=== PATIENT | male | born 1965 | race Caucasian/White ===

== ENCOUNTER → 2018-11-22 | Outpatient (CLI) | payer OTHER ==
--- NOTE | 2018-11-25 10:35 | SLEEPCENT ---
DATE OF PROCEDURE: 11/22/2018 ORDERING PROVIDER: Sobeida Blake Nocturnal polysomnography was performed for the titration of pressure therapy in this patient with obstructive sleep apnea syndrome. For testing, the patient was fit with a [employer]Med Mirage Quattro full face mask of medium size, 11 cm of water pressure were applied to the circuit, and the lights were extinguished. 7 hours and 38 minutes of data were reviewed. There were 406 minutes of sleep identified. Sleep latency was normal at 11.5 minutes. Rapid eye movement (REM) latency was short at 57 minutes. Sleep architecture was good with four REM cycles noted. Overall sleep efficiency was 89.4%. The electrocardiogram showed a sinus rhythm with an average heart rate of 52 beats per minute. Electroencephalogram (EEG) showed normal waveforms for awake and sleep. Respiratory events were fully palliated with C-PAP pressure of +11. There was some limb activity early in the study, which improved later in the test and movement arousal index was only 3.1. IMPRESSION: Obstructive sleep apnea syndrome (G47.33). RECOMMENDATIONS: Nightly use of pressure therapy 11 cm of water.
== END ==
LOC: M SLEEP 19:44
PROVIDERS: ATTEND Nurse Practitioner Family
DX: G47.33 Obstructive sleep apnea (adult) (pediatric) (principal)

== ENCOUNTER → 2019-06-20 | Outpatient (CLI) | payer OTHER ==
--- NOTE | 2019-06-23 10:10 | SLEEPCENT ---
DATE OF PROCEDURE: 06/20/2019 ORDERED BY: Sobeida Blake NP Nocturnal polysomnography was performed followed by multiple sleep latency testing on this patient with obstructive sleep apnea syndrome utilizing C-PAP but experiencing excessive daytime somnolence. For night testing, 7 hours and 49 minutes of data were reviewed. There were 421 minutes of sleep identified. Sleep latency was mildly prolonged at 17.5 minutes. Rapid eye movement (REM) latency was normal at 86 minutes. Sleep architecture, initially somewhat fragmented, improved over the course of study with optimal pressure therapy. There were four REM cycles noted. Overall sleep efficiency was 90.7%. The patient's electrocardiogram showed sinus rhythm with an average heart rate of 55 beats per minute. Electroencephalogram (EEG) showed normal waveforms for awake and sleep. Respiratory events were not palliated with the initial C-PAP pressure of +11 and an increase in C-PAP to an optimal pressure of 15 was necessary to optimally palliate respiratory fragmentation of sleep. Some limb activity was appreciated. There were three trains of 30 events appreciated. Limb movement arousal index was only 7. Nocturnal polysomnography was followed by multiple sleep latency testing. Four nap opportunities were offered at 2-hour intervals. Sleep was appreciated on four of four nap opportunities. There was no REM sleep appreciated. The mean sleep latency was 3.6 minutes. IMPRESSION 1. Obstructive sleep apnea syndrome (G47.33). 2. Abnormal mean sleep latency on multiple sleep latency testing, 3.6 minutes. RECOMMENDATIONS: For optimal management of obstructive sleep apnea syndrome, C-PAP at a pressure of 15 cm of water is recommended. Interpretation of the short sleep latency requires caution as the patient's pressure therapy was changed during the preceding night. Nonetheless, should the patient experience excessive somnolence despite use of optimal C-PAP, interventions to address the excessive somnolence would not be unreasonable.
== END ==
LOC: M SLEEP 20:05
PROVIDERS: ATTEND Nurse Practitioner Family
DX: G47.33 Obstructive sleep apnea (adult) (pediatric) (principal)

== ENCOUNTER → 2019-11-20 | Outpatient (CLI) | payer OTHER ==
--- NOTE | 2019-11-20 11:34 | REPPI ---
Clinical: Nicotine dependence . Comparison: 11/06/2010 . Technique: PA and lateral. Findings: The mediastinum and cardiac silhouette are normal. The lung loomis are clear and without acute consolidation, effusion, or pneumothorax. The skeletal structures are intact and normal. Impression: 1. No acute cardiopulmonary process. Electronically Signed by Sarath David MD 11/20/2019 11:26 A
--- NOTE | 2019-11-20 11:35 | REPPI ---
Clinical: thoracic pain. Technique: AP, lateral, and swimmers views. Findings: Alignment and kyphosis is maintained. Vertebral bodies intact. No acute fracture / compression injury or subluxation. No degenerative changes. Paravertebral soft tissues are normal. Impression: Normal thoracic spine series. The Electronically Signed by Sarath David MD 11/20/2019 11:26 A
--- NOTE | 2019-11-20 11:38 | REPPI ---
Clinical: Pain. Technique: AP, lateral, flexion/extension, bilateral oblique, and open mouth views of the cervical spine. Comparison: 04/28/2016. Findings: Stable alignment. Moderate multilevel degenerative changes include osteophytosis, endplate sclerosis and disc space narrowing is mildly progressive when compared to prior examination. Findings most pronounced at C6-7 and C5-6. No acute fracture / compression injury or subluxation. Impression: Moderate multilevel degenerative spondylosis which is mildly progressive when compared to 2016. Electronically Signed by Sarath David MD 11/20/2019 11:29 A
--- NOTE | 2019-11-20 11:39 | REPPI ---
Clinical: Lower back pain . Technique: AP, lateral, bilateral oblique, and coned-down views. Comparison: 04/28/2016 Findings: Alignment is maintained. Straightening of normal lordosis is nonspecific but represents a change from prior examination. No acute fracture / compression injury or subluxation. Moderate multilevel degenerative changes include osteophytosis, endplate sclerosis, hypertrophic facet changes and minimal disc space narrowing. Impression: No acute fracture / compression injury or subluxation. Moderate multilevel degenerative spondylosis. Electronically Signed by Sarath David MD 11/20/2019 11:30 A
== END ==
LOC: M PLAIMG 10:58
PROVIDERS: ATTEND Physician Assistant
DX: M54.5 Low back pain (principal); F17.210 Nicotine dependence, cigarettes, uncomplicated

== ENCOUNTER → 2019-11-20 | Outpatient (REF) | payer OTHER ==
[2019-11-20 11:52] LABS: BASO # 0.1 10^3/uL (0.0-0.2); EOS # 0.3 10^3/uL (0.0-0.5); EOS % 3.9 % (0.0-3.0); HEMATOCRIT 43.4 % (42.0-52.0); HEMOGLOBIN 14.7 g/dl (13.5-17.5); LYMPH % 23.6 % (24.0-44.0); MEAN CORPUSCULAR HEMOGLOBIN 32.2 pg (27.0-33.0); MEAN CORPUSCULAR HGB CONC 33.9 g/dl (32.0-36.5); MEAN CORPUSCULAR VOLUME 95.2 fl (80.0-96.0); MONO # 0.7 10^3/uL (0.0-0.8); MONO % 8.4 % (0.0-5.0); NEUTROPHILS # 5.1 10^3/uL (1.5-8.5); NEUTROPHILS % 62.3 % (36.0-66.0); PLATELET COUNT, AUTOMATED 262 10^3/uL (150-450); RED BLOOD COUNT 4.56 10^6/uL (4.30-6.10); WHITE BLOOD COUNT 8.3 10^3/uL (4.0-10.0)
[2019-11-20 12:06] LABS: ALBUMIN 4.1 GM/DL (3.2-5.2); ALT/SGPT 43 U/L (12-78); BILIRUBIN,TOTAL 0.5 MG/DL (0.2-1.0); BLOOD UREA NITROGEN 16 MG/DL (7-18); CALCIUM LEVEL 9.4 MG/DL (8.5-10.1); CARBON DIOXIDE LEVEL 29 MEQ/L (21-32); CHLORIDE LEVEL 105 MEQ/L (98-107); CHOLESTEROL LEVEL 229 MG/DL (<200); CHOLESTEROL RISK RATIO 6.026 (<5); CREATININE FOR GFR 0.93 MG/DL (0.70-1.30); FREE T4 0.82 NG/DL (0.76-1.46); GLOMERULAR FILTRATION RATE > 60.0 (>56); GLUCOSE, FASTING 97 MG/DL (70-100); HDL CHOLESTEROL 38 MG/DL (>40); LDL CHOLESTEROL 148 MG/DL (<100); NON-HDL-C 191 MG/DL; POTASSIUM SERUM 4.3 MEQ/L (3.5-5.1); SODIUM LEVEL 138 MEQ/L (136-145); TOTAL 25(OH) VITAMIN D 13.4 NG/ML (30.0-100.0); TOTAL PROTEIN 7.4 GM/DL (6.4-8.2); TRIGLYCERIDES LEVEL 216 MG/DL (<150)
== END ==
LOC: M SFHCPLAZ 09:56
PROVIDERS: ATTEND Physician Assistant
DX: Z00.00 Encounter for general adult medical examination without abnormal findings (principal); R53.83 Other fatigue; G47.33 Obstructive sleep apnea (adult) (pediatric); Z13.29 Encounter for screening for other suspected endocrine disorder; Z13.220 Encounter for screening for lipoid disorders

== ENCOUNTER → 2019-11-28 | Outpatient (CLI) | payer OTHER | LOC: M SLEEP 20:25 | PROVIDERS: ATTEND Nurse Practitioner Family | DX: G47.33 Obstructive sleep apnea (adult) (pediatric) (principal); G47.10 Hypersomnia, unspecified ==

== ENCOUNTER → 2020-03-05 | Outpatient (REF) | payer OTHER ==
[2020-03-05 12:01] LABS: RHEUMATOID FACTOR QUANT < 10.0 IU/ML (<15.0)
== END ==
LOC: M SFHCPLAZ 08:44
PROVIDERS: ATTEND Physician Assistant
DX: M13.0 Polyarthritis, unspecified (principal); G89.29 Other chronic pain; M54.5 Low back pain

== ENCOUNTER → 2020-05-10 | Outpatient (CLI) | payer OTHER ==
--- NOTE | 2020-06-27 09:46 | REP ---
MRI PELVIS WITHOUT CONTRAST HISTORY: Positive HLA-B27 sacroiliitis. TECHNIQUE: Multiple sequences obtained in the axillary, coronal, and sagittal planes centered at the posterior pelvis and sacrum. FINDINGS: The sacrum demonstrates normal marrow signal as do the adjacent iliac bones. There is no MRI evidence of sacroiliitis. There is mild degenerative changes of the lower lumbar spine with mild disc space narrowing at L4-5 and L5-S1. Visualized intrapelvic structures appear unremarkable. I see no evidence of mass, adenopathy, or free fluid in the visualized pelvis. IMPRESSION: No MRI evidence of sacroiliitis. MTDD
== END ==
LOC: M RAD 08:00
PROVIDERS: ATTEND Internal Medicine Rheumatology
DX: Z15.89 Genetic susceptibility to other disease (principal)

== ENCOUNTER → 2020-06-03 | Outpatient (CLI) | payer OTHER | LOC: M PLALAB 15:51 | PROVIDERS: ATTEND Internal Medicine | DX: Z13.0 Encounter for screening for diseases of the blood and blood-forming organs and certain disorders involving the immune mechanism (principal) ==

== ENCOUNTER → 2020-06-18 | Outpatient (CLI) | payer OTHER ==
[2020-06-18 11:43] LABS: ALBUMIN 3.8 GM/DL (3.2-5.2); ALT/SGPT 50 U/L (12-78); BILIRUBIN,TOTAL 0.5 MG/DL (0.2-1.0); BLOOD UREA NITROGEN 9 MG/DL (7-18); CALCIUM LEVEL 9.6 MG/DL (8.5-10.1); CARBON DIOXIDE LEVEL 31 MEQ/L (21-32); CHLORIDE LEVEL 103 MEQ/L (98-107); CHOLESTEROL LEVEL 200 MG/DL (<200); CHOLESTEROL RISK RATIO 4.878 (<5); CREATININE FOR GFR 0.97 MG/DL (0.70-1.30); GLOMERULAR FILTRATION RATE > 60.0 (>56); GLUCOSE, FASTING 97 MG/DL (70-100); HDL CHOLESTEROL 41 MG/DL (>40); LDL CHOLESTEROL 98 MG/DL (<100); NON-HDL-C 159 MG/DL; POTASSIUM SERUM 4.9 MEQ/L (3.5-5.1); SODIUM LEVEL 139 MEQ/L (136-145); TOTAL PROTEIN 7.2 GM/DL (6.4-8.2); TRIGLYCERIDES LEVEL 306 MG/DL (<150)
[2020-06-18 13:26] LABS: TOTAL 25(OH) VITAMIN D 31.2 NG/ML (30.0-100.0)
== END ==
LOC: M PLALAB 08:06
PROVIDERS: ATTEND Physician Assistant
DX: I11.9 Hypertensive heart disease without heart failure (principal); E78.5 Hyperlipidemia, unspecified; E55.9 Vitamin D deficiency, unspecified

== ENCOUNTER → 2020-09-20 | Outpatient (REF) | payer OTHER | LOC: M SFHCPLAZ 14:09 | PROVIDERS: ATTEND Physician Assistant | DX: Z12.5 Encounter for screening for malignant neoplasm of prostate (principal) | CPT/HCPCS: 36415; G0103 ==

== ENCOUNTER → 2020-09-20 | Outpatient (CLI) | payer OTHER ==
--- NOTE | 2020-09-20 13:47 | REPVR ---
PROCEDURE INFORMATION: Exam: MR Cervical Spine Without Contrast Exam date and time: 09/20/2020 9:02 AM Age: 55 years old Clinical indication: Radicular pain (radiculopathy); Cervical region; Additional info: Cervical radiculopathy TECHNIQUE: Imaging protocol: Multiplanar magnetic resonance images of the cervical spine without contrast. COMPARISON: CR SPINE CERVICAL COMPLETE 11/20/2019 11:14 AM FINDINGS: Vertebrae: 2 mm of degenerative retrolisthesis of C3 on C4 and C5 on C6. No acute fracture seen. Spinal cord: Normal signal. No cord compression. Disc height loss and spondylosis is marked at C6-C7, moderate at C5-C6, [id number]-ap-hewctunr at C3-C4 and C4-C5. Endplate inflammation from C3 through C7 is likely inflammatory/degenerative. C2-C3: Mild disc bulge does not contribute to central spinal canal stenosis. Uncovertebral and facet arthropathy causing mild bilateral neural foraminal stenoses. C3-C4: Retrolisthesis, disc osteophyte complex and ligamentum flavum buckling causing mild central spinal canal stenosis. Uncovertebral and facet arthropathy causing severe bilateral neural foraminal stenoses. C4-C5: Disc osteophyte complex and ligamentum flavum buckling causing kwnf-md-lxjfdsot central spinal canal stenosis. Uncovertebral and facet arthropathy causing severe bilateral neural foraminal stenoses. C5-C6: Disc osteophyte complex and ligamentum flavum buckling causing miav-sz-nfxbqwqi central spinal canal stenosis. Uncovertebral and facet arthropathy causing severe bilateral neural foraminal stenoses. C6-C7: Disc osteophyte complex and ligamentum flavum buckling causing mild central spinal canal stenosis. Uncovertebral and facet arthropathy causing severe left and moderate to severe right neural foraminal stenoses. C7-T1: Hoby-dc-likdaclt facet arthropathy. No stenoses. Vertebral arteries: Expected flow voids in the vertebral arteries. Soft tissues: Unremarkable. IMPRESSION: 1. Degenerative disc disease from C3-C4 through C6-C7. 2. High-grade bilateral neural foraminal stenoses from C3-C4 through C6-C7. Central spinal canal stenoses are [id number]-dk-xohvfcvg in degree. Electronically signed by: Drea Khoury On 09/20/2020 13:47:03 PM
== END ==
LOC: M RAD 07:55
PROVIDERS: ATTEND Internal Medicine
DX: M54.12 Radiculopathy, cervical region (principal)

== ENCOUNTER → 2020-10-10 | Outpatient (CLI) | payer OTHER ==
--- NOTE | 2020-10-10 17:02 | REP ---
INDICATION: WT LOSS NIGHT SWEATS NICOTINE DEPEND COMPARISON: None TECHNIQUE: Axial noncontrast images from the thoracic inlet to the upper abdomen with coronal and sagittal reformations. This CT examination was performed using the following dose reduction techniques: Automated exposure control, adjustment of mA and/or kv according to the patient's size, and use of iterative reconstruction technique. FINDINGS: Bilateral lung loomis demonstrate chronic interstitial changes and relatively focal bullous changes at the right base up to 6.1 cm. Few scattered noncalcified pulmonary nodules are identified including 9 mm nodule with subtle spiculated margin along the medial aspect of the left lower lobe (series 201; image 59). Few nonspecific mediastinal lymph nodes measure up to 12 mm short axis diameter. No effusion. No pneumothorax. Tracheobronchial tree is patent. Further evaluation of the mediastinum demonstrates relatively normal thoracic aorta, pulmonary vasculature, and heart/pericardium by noncontrast evaluation. Thyroid gland is grossly normal. Osseous structures are intact and without acute abnormality. Limited upper abdomen demonstrates normal bilateral adrenal glands. IMPRESSION: Few noncalcified nodules including 9 mm nodule in the medial left lower lobe with subtle spiculation along with nonspecific mediastinal lymph nodes up to 12 mm short axis diameter. No prior examinations are available for comparison. Management recommendations include 3 month short-term follow-up evaluation and/or PET-CT. <Electronically signed by Sarath David > 10/10/20 [id number]
== END ==
LOC: M RAD 16:38
PROVIDERS: ATTEND Physician Assistant
DX: R91.8 Other nonspecific abnormal finding of lung field (principal); R63.4 Abnormal weight loss; R61 Generalized hyperhidrosis; F17.210 Nicotine dependence, cigarettes, uncomplicated

== ENCOUNTER 2020-12-21 09:54 | Emergency (ER) | payer OTHER ==
[~2020-12-21] VITALS: Ht 182.9 cm; Wt 99.4 kg
[2020-12-21] MEDS ORDERED: [UNRECOGNIZED DRUG - CODE] PO (10:09)
[2020-12-21] MEDS ORDERED: AMPH1CAP16 (10:09)
[2020-12-21] MEDS ORDERED: IBUP200C33 PO (10:10)
--- NOTE | 2020-12-21 10:35 | REP ---
INDICATION: pain, decreased ROM. COMPARISON: None. TECHNIQUE: Three views. FINDINGS: Mineralization is normal. The acromioclavicular and glenohumeral articulations are unremarkable. There is no fracture or dislocation. There are no calcifications or foreign bodies. IMPRESSION: Essentially negative right shoulder. <Electronically signed by Beny Sood > 12/21/20 [id number]
[2020-12-21] MEDS ORDERED: KETOROLAC 60MG 2ML VIAL IM ONE (11:25)
[2020-12-21] MEDS ORDERED: KETO10TAB PO (11:46)
[2020-12-21] MEDS ORDERED: ROBA750T4 PO (11:47)
[2020-12-21 12:05] VITALS: BP 144/98
== END 2020-12-21 12:13 | disposition home or self-care (01) ==
LOC: M ED 09:54
DX: M25.511 Pain in right shoulder (principal); G47.33 Obstructive sleep apnea (adult) (pediatric)
CPT/HCPCS: 73030; 96372; 99284; J1885

== ENCOUNTER → 2020-12-25 | Outpatient (CLI) | payer OTHER ==
[~2020-12-25] MED LIST: AMPH1CAP16; IBUP200C33 PO; KETO10TAB PO; ROBA750T4 PO; [UNRECOGNIZED DRUG - CODE] PO
--- NOTE | 2020-12-25 15:26 | REP ---
INDICATION: SHOULDER PAIN. COMPARISON: Radiographs 12/21/2020. TECHNIQUE: Coronal oblique T1, T2 fat sat, sagittal oblique T2 fat sat, axial T2 fat sat, gradient echo. FINDINGS: Rotator cuff: No evidence of tear. There is mild supraspinatus tendinopathy/tendinitis. Acromioclavicular joint: There are mild hypertrophic degenerative changes of the acromioclavicular joint. Acromion: Type 2 Biceps Tendon: The biceps tendon is within the bicipital groove. There is mild surrounding fluid. There is also moderate degree of soft tissue edema in this region which involves the short head of the biceps muscle. The findings may represent tenosynovitis and muscle strain. Hill Sach's deformity: None. Deltoid muscle: There is mild edema in the deep anterior deltoid muscle near the humerus, which may represent a muscle strain. There is a mild amount of fluid in the associated subdeltoid bursa. Biceps labral complex: Intact. Labrum: There is a tear of the posterior aspect of the superior labrum. There is an associated large paralabral cyst which has a lobulated shape, portion extends along the superior posterior glenoid with a transverse length of about 2.8 cm and a diameter of about 1.2 cm. A component extends inferior from this along the posterior glenoid for a length of about 2.7 cm, with a maximum diameter of 9 mm. There is also a tear of the inferior labrum. Cartilage: No defects. There is mild chondromalacia at the glenohumeral joint. Bone marrow: No abnormal signal. Joint fluid: No effusion. IMPRESSION: Mild supraspinatus tendinopathy/tendinitis with no evidence of rotator cuff tendon tear. Mild hypertrophic degenerative changes acromioclavicular joint with a type 2 acromion. Mild fluid surrounds the biceps tendon and there is also moderate adjacent soft tissue edema which involves the short head of the biceps muscle. This may represent tenosynovitis and muscle strain. There is also edema involving the deep anterior deltoid muscle which may represent a muscle strain. There is mild adjacent fluid in the anterior subdeltoid bursa. There is a tear of the posterior aspect of the superior labrum with a large paralabral cyst. There is a focal tear of the inferior labrum. <Electronically signed by Beny Enrique > 12/25/20 [id number]
== END ==
LOC: M PLARAD 13:32
PROVIDERS: ATTEND Physician Assistant
DX: M25.511 Pain in right shoulder (principal)

== ENCOUNTER → 2021-01-29 | Outpatient (CLI) | payer OTHER ==
--- NOTE | 2021-01-29 11:51 | REP ---
INDICATION: DYSPNEA COMPARISON: 10/10/2020 the only prior TECHNIQUE: Standard helical technique without the administration of intravenous contrast FINDINGS: The mediastinum and pulmonary sharona are unchanged. Once again, there is a mildly enlarged mediastinal lymph node in the AP window. There are no pleural or pericardial effusions. The imaged upper abdomen and imaged osseous structures are unchanged. Evaluation of the lung loomis shows no evidence of change involving the 9 mm size nodule in the left lower lobe. Other smaller scattered nodules are also noted status quo. Bullous emphysematous changes are again seen status quo. There is stable appearing a cylindrical bronchiectasis. No new abnormal nodules, masses, or opacities have developed. IMPRESSION: Persistent category 4 B pulmonary nodules. According to the revised Fleischner society criteria CT-PET is recommended. <Electronically signed by Prakash Gunter > 01/29/21 [id number]
== END ==
LOC: M RAD 10:37
PROVIDERS: ATTEND Nurse Practitioner Family
DX: R91.8 Other nonspecific abnormal finding of lung field (principal)

== ENCOUNTER → 2021-04-21 | Outpatient (CLI) | payer OTHER ==
[~2021-04-21] MED LIST changes: +ADDE20CA3 PO; +ADDE20TA PO; +CLAR10TA7 PO; +IBUP1TAB7 PO; +OMEP1CAP73 PO; +SILV1CRE60 TOP
--- NOTE | 2021-04-21 13:16 | REP ---
INDICATION: CONTUSION. COMPARISON: Chest 11/20/2019. TECHNIQUE: Four views right ribs, frontal view chest. FINDINGS: No radiographic evidence of right rib fracture or bone lesion. There is a moderate right pneumothorax. Atelectatic changes are seen in the right lung base. The heart and mediastinum are unremarkable. IMPRESSION: No radiographic evidence of right rib fracture. Moderate right pneumothorax. <Electronically signed by Beny Enrique > 04/21/21 [id number]
== END ==
LOC: M WUC 11:59
PROVIDERS: ATTEND Physician Assistant
DX: S20.211A Contusion of right front wall of thorax, initial encounter (principal); W18.30XA Fall on same level, unspecified, initial encounter; Y92.009 Unspecified place in unspecified non-institutional (private) residence as the place of occurrence of the external cause

== ENCOUNTER 2021-04-23 19:49 | Inpatient (IN) | payer OTHER ==
[2021-04-23] VITALS (21 sets, daily range): BP systolic 136–187; BP diastolic 83–113; O2SAT 97–98
[~2021-04-23] VITALS: Ht 182.9 cm; Wt 95.0 kg
[~2021-04-23 19:49] MED LIST changes: -ADDE20CA3 PO; -ADDE20TA PO; -CLAR10TA7 PO; -IBUP1TAB7 PO; -OMEP1CAP73 PO; -SILV1CRE60 TOP
[2021-04-23] MEDS ORDERED: PERCOCET 5MG/325MG TAB PO PRN ×4 (20:50→22:00)
[2021-04-23] MEDS ORDERED: ACETAMINOPHEN TAB 650MG DOSE (2X325MG) PO PRN (20:50)
[2021-04-23] MEDS ORDERED: ONDANSETRON 4MG/2ML VIAL IV PRN (20:50)
[2021-04-23] MEDS ORDERED: SENOKOT S TAB PO PRN (20:50)
[2021-04-23] MEDS ORDERED: MOM 30ML SUSPENSION UDC PO PRN (20:50)
[2021-04-23] MEDS ORDERED: KETOROLAC 30 MG/ML 1ML VIAL IV SCH (20:50)
[2021-04-23] MEDS ORDERED: KCL 20MEQ IN D5/NS 1000ML 1,000 ML IV SCH (20:50)
[2021-04-23] MEDS ORDERED: LEVALBUTEROL 1.25 MG/0.5 ML CONCENTRATE NEB NEB PRN (20:50)
[2021-04-23] MEDS ORDERED: BISACODYL 10 MG SUPP PR PRN (20:50)
[2021-04-23] MEDS ORDERED: SILV1CRE60 TOP (20:58)
[2021-04-23] MEDS ORDERED: OMEP1CAP73 PO (20:58)
[2021-04-23] MEDS ORDERED: IBUP1TAB7 PO (20:58)
[2021-04-23] MEDS ORDERED: ADDE20TA PO (20:58)
[2021-04-23] MEDS ORDERED: ADDE20CA3 PO (20:58)
[2021-04-23] MEDS ORDERED: CLAR10TA7 PO (20:58)
[2021-04-23 21:04] LABS: BASO # 0.1 10^3/uL (0.0-0.2); BASO % 0.8 % (0.0-1.0); EOS # 0.4 10^3/uL (0.0-0.5); EOS % 5.4 % (0.0-3.0); HEMATOCRIT 42.4 % (42.0-52.0); HEMOGLOBIN 14.6 g/dl (13.5-17.5); LYMPH # 2.1 10^3/uL (1.5-5.0); LYMPH % 26.5 % (24.0-44.0); MEAN CORPUSCULAR HEMOGLOBIN 31.8 pg (27.0-33.0); MEAN CORPUSCULAR HGB CONC 34.4 g/dl (32.0-36.5); MEAN CORPUSCULAR VOLUME 92.4 fl (80.0-96.0); MONO # 0.6 10^3/uL (0.0-0.8); NEUTROPHILS # 4.7 10^3/uL (1.5-8.5); NEUTROPHILS % 58.9 % (36.0-66.0); PLATELET COUNT, AUTOMATED 253 10^3/uL (150-450); RED BLOOD COUNT 4.59 10^6/uL (4.30-6.10); WHITE BLOOD COUNT 7.9 10^3/uL (4.0-10.0)
[2021-04-23] MEDS ORDERED: MIDAZOLAM INJ 2MG/2ML VIAL (J2250 PER 1MG) As Ordered ONE (21:09)
[2021-04-23] MEDS ORDERED: flumazeniL 0.5 MG/5 ML VIAL As Ordered ONE (21:09)
[2021-04-23] MEDS ORDERED: LIDOCAINE 1% MDV 20ML VIAL As Ordered ONE (21:10)
[2021-04-23 21:14] LABS: INR 0.91; PROTHROMBIN TIME 12.4 SECONDS (12.5-14.3)
[2021-04-23 21:15] LABS: PARTIAL THROMBOPLASTIN TIME 26.6 SECONDS (24.2-38.5)
[2021-04-23 21:22] LABS: BLOOD UREA NITROGEN 11 MG/DL (7-18); CALCIUM LEVEL 8.9 MG/DL (8.5-10.1); CARBON DIOXIDE LEVEL 29 MEQ/L (21-32); CHLORIDE LEVEL 109 MEQ/L (98-107); CREATININE FOR GFR 0.94 MG/DL (0.70-1.30); GLOMERULAR FILTRATION RATE > 60.0 (>56); GLUCOSE, FASTING 68 MG/DL (70-100); POTASSIUM SERUM 3.7 MEQ/L (3.5-5.1); SODIUM LEVEL 142 MEQ/L (136-145)
[2021-04-23 22:04] LABS: RSV AMPLIFICATION NEGATIVE (NEGATIVE)
[2021-04-23] MEDS ORDERED: NICOTINE POLACRILEX 2 MG GUM PO PRN (22:25)
[2021-04-23] MEDS: DOCUSATE SODIUM 100MG CAPSULE PO SCH (22:50)
[2021-04-23] MEDS: KETOROLAC 30 MG/ML 1ML VIAL IV SCH (22:51)
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
[2021-04-23] MEDS ORDERED: LIDOCAINE 1% MDV 20ML VIAL SC ONE (23:25)
[2021-04-23] MEDS ORDERED: MIDAZOLAM INJ 2MG/2ML VIAL (J2250 PER 1MG) IV ONE ×3 (23:25)
[2021-04-24] VITALS (24 sets, daily range): BP systolic 133–154; BP diastolic 82–96; O2SAT 93–100
[2021-04-24] MEDS ORDERED: NS 1,000 ML IV SCH
[2021-04-24] MEDS: NICOTINE 14 MG/24 HR TRANSDERMAL TD SCH ×2 (00:20→08:43)
[2021-04-24] MEDS: LEVALBUTEROL 1.25 MG/0.5 ML CONCENTRATE NEB NEB SCH ×4 (02:17→19:15)
[2021-04-24] MEDS: KETOROLAC 30 MG/ML 1ML VIAL IV SCH ×4 (04:37→20:41)
[2021-04-24 06:08] LABS: BASO # 0.1 10^3/uL (0.0-0.2); BASO % 0.8 % (0.0-1.0); EOS # 0.4 10^3/uL (0.0-0.5); EOS % 5.2 % (0.0-3.0); HEMATOCRIT 41.9 % (42.0-52.0); LYMPH # 1.7 10^3/uL (1.5-5.0); LYMPH % 20.3 % (24.0-44.0); MEAN CORPUSCULAR HEMOGLOBIN 31.3 pg (27.0-33.0); MEAN CORPUSCULAR HGB CONC 33.4 g/dl (32.0-36.5); MEAN CORPUSCULAR VOLUME 93.5 fl (80.0-96.0); MONO # 0.6 10^3/uL (0.0-0.8); MONO % 7.4 % (2.0-8.0); NEUTROPHILS # 5.4 10^3/uL (1.5-8.5); NEUTROPHILS % 65.8 % (36.0-66.0); PLATELET COUNT, AUTOMATED 238 10^3/uL (150-450); RED BLOOD COUNT 4.48 10^6/uL (4.30-6.10); WHITE BLOOD COUNT 8.3 10^3/uL (4.0-10.0)
[2021-04-24 06:28] LABS: BLOOD UREA NITROGEN 12 MG/DL (7-18); CALCIUM LEVEL 8.6 MG/DL (8.5-10.1); CARBON DIOXIDE LEVEL 26 MEQ/L (21-32); CHLORIDE LEVEL 109 MEQ/L (98-107); GLOMERULAR FILTRATION RATE > 60.0 (>56); GLUCOSE, FASTING 96 MG/DL (70-100); POTASSIUM SERUM 4.2 MEQ/L (3.5-5.1); SODIUM LEVEL 142 MEQ/L (136-145)
--- NOTE | 2021-04-24 07:37 | RO ---
OPERATIVE NOTE DATE OF OPERATION: 04/23/2021 PREOPERATIVE DIAGNOSIS: Right pneumothorax. POSTOPERATIVE DIAGNOSIS: Right pneumothorax. PROCEDURE: Insertion of a right lateral chest tube. SURGEON: Garrett Stanley MD FLOATER OPERATOR: ANESTHESIA: DESCRIPTION OF PROCEDURE: Under satisfactory moderate sedation achieved eventually with 6 mg of Versed, the patient was prepped and draped in the usual sterile fashion. The approximate 6th to 5th intercostal space was infiltrated with 1% lidocaine from the skin to the pleura. Incision was made and a tunnel was created into the chest aiming anteriorly. A #20 chest tube was then placed without difficulty, again aiming anteriorly. Chest tube was secured to the chest wall with #2 Tevdek suture and connected to the Pleur-Evac. It should be noted there was an immediate gush of air once creating the tunnel and an immediate gush of air when connecting the chest tube. Afterwards, the air leak stopped. The patient tolerated the procedure well and a chest x-ray is pending.
--- NOTE | 2021-04-24 07:56 | REP ---
INDICATION: after chest tube placed. COMPARISON: Comparison chest x-ray April 23, 2021. TECHNIQUE: Portable upright AP chest radiograph. FINDINGS: A right-sided chest tube is been placed. The right-sided pneumothorax is improved although pleural air persists superiorly and laterally. Left lung remains clear. There is platelike atelectasis along the minor fissure on the right and in the right lower lobe. Pleural angles are sharp. The intercostal spaces are no longer widened on the right compared to the left.. Heart size is normal. IMPRESSION: Improved right-sided pneumothorax post chest tube placement.. <Electronically signed by Dandre Hermosillo > 04/24/21 [id number]
[2021-04-24] MEDS ORDERED: AMPHETAMINE/DEXTROAMPHETAMINE 5 MG *ER* CAPSULE (ADDERALL XR) PO SCH (08:00)
--- NOTE | 2021-04-24 08:18 | REPVR ---
PROCEDURE INFORMATION: Exam: CT Chest Without Contrast; Diagnostic Exam date and time: 04/24/2021 6:00 AM Age: 55 years old Clinical indication: Other: Pneumo check; Additional info: [employer]nem[employer] TECHNIQUE: Imaging protocol: Diagnostic computed tomography of the chest without contrast. 3D rendering (Not supervised by radiologist): MIP and/or 3D reconstructed images were created by the technologist. Radiation optimization: All CT scans at this facility use at least one of these dose optimization techniques: automated exposure control; mA and/or kV adjustment per patient size (includes targeted exams where dose is matched to clinical indication); or iterative reconstruction. COMPARISON: 1. CT Chest without contrast 01/29/2021 10:50 AM 2. CR PORTABLE CHEST X-RAY 04/23/2021 9:48:31 PM (report not provided) 3. CT Chest without contrast 10/10/2020 4:55:50 PM FINDINGS: Limitations: Evaluation is somewhat limited by lack of IV contrast. Tubes, catheters and devices: A right chest tube has been placed since the radiograph. Lungs: There is similar bullous change in the right lower lobe with minor subpleural apical emphysematous disease. There are stable pulmonary nodules measuring 4 mm in the right lower lobe (image 202:[id number]), and 9 mm, 7 mm and 4 mm in the left lower lobe (images 202:63, 79, 69, respectively). Small scattered patchy ground-glass opacities have developed in the left more than right upper lobes. There is mild dependent atelectasis bilaterally. Pleural spaces: There is decreased, now very small right-sided pneumothorax. No left pneumothorax. Trace right pleural effusion without significant effusion on the left. Heart: Coronary artery calcifications are again present. No significant pericardial effusion. Aorta: Dilatation of the ascending aorta up to 4.2 cm in caliber is fairly stable. Atherosclerotic vascular calcifications are again present. Lymph nodes: Similar borderline enlarged pretracheal lymph node measuring 10 mm short axis. Subcentimeter short axis lymph nodes are present elsewhere in the mediastinum and bilateral sharona. Bones/joints: Degenerative changes again involve the spine. Soft tissues: There is moderate new subcutaneous edema over the right chest wall with some extension into the right neck. IMPRESSION: 1. Right chest tube placed since chest x-ray of 1 day prior, with decreased, now very small right-sided pneumothorax, with trace right pleural effusion. 2. New associated subcutaneous emphysema. 3. Emphysematous and bullous changes similar to CT of 01/29/2021. 4. Small new scattered patchy ground-glass opacities in the left more than right upper lobes, could be infectious or inflammatory. Correlate clinically and follow-up. 5. Stable appearance of pulmonary nodules measuring up to 9 mm, also stable dating back to more remote prior CT of 10/10/2020. For patients at low risk (minimal or absent history of smoking and of other known risk factors), consider continued follow-up CT Chest at 18-24 months from the initial exam. For patients at high risk (history of smoking or of other known risk factors), recommend continued follow-up CT Chest at 18-24 months from the initial exam. (Reference: Minerva) REFERENCES: Minerva H, et al. Guidelines for Management of Incidental Pulmonary Nodules Detected on CT Images: From the Fleischner Society 2017. Radiology. 2017;284(1):228-243. Electronically signed by: Ralf Whittington On 04/24/2021 08:18:32 AM
--- NOTE | 2021-04-24 08:34 | REP ---
INDICATION: after chest tube placed. COMPARISON: Comparison is made with portable chest x-ray post chest tube placement April 23, 2021 at 9:51 p.m.. TECHNIQUE: Two views.. FINDINGS: Right chest tube is seen in place. This appears to be coursing through the major fissure. The right lung has been re-expanded. A tiny sliver of residual apical pleural air is seen on the right. There is soft tissue emphysema along the right chest wall. Left lung is clear. No infiltrate is seen. Heart is not enlarged. IMPRESSION: Re-expansion of the right lung post chest tube placement.. <Electronically signed by Dandre Hermosillo > 04/24/21 [id number]
[2021-04-24] MEDS: AMPHETAMINE/DEXTROAMPHETAMINE 5 MG *ER* CAPSULE (ADDERALL XR) PO SCH (08:42)
[2021-04-24] MEDS: DOCUSATE SODIUM 100MG CAPSULE PO SCH ×2 (08:42→20:42)
[2021-04-24] MEDS: PANTOPRAZOLE 40MG TAB (PROTONIX) PO SCH (08:42)
[2021-04-24] MEDS: LORATADINE 10 MG TAB PO SCH (08:42)
[2021-04-24] MEDS: HEPARIN SOD (PORCINE) 5000UNITS/ML 1ML VIAL/SYRINGE SC SCH ×2 (08:43→20:41)
[2021-04-24] MEDS: MOM 30ML SUSPENSION UDC PO SCH (08:43)
[2021-04-24] MEDS ORDERED: OMEPRAZOLE 20 MG CAP PO SCH (09:00)
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
[2021-04-24] MEDS: ADDERALL 5 MG TAB PO SCH (12:06)
[2021-04-24] MEDS: NORCO, ANEXSIA 5/325MG TABLET (HYDROcodone/ACETAMINOPHEN) PO PRN ×2 (12:06→18:19)
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
[2021-04-25] VITALS (7 sets, daily range): BP systolic 129–168; BP diastolic 72–97; O2SAT 94–96
[2021-04-25] MEDS: LEVALBUTEROL 1.25 MG/0.5 ML CONCENTRATE NEB NEB SCH ×3 (02:10→13:21)
[2021-04-25] MEDS: KETOROLAC 30 MG/ML 1ML VIAL IV SCH ×3 (03:42→14:05)
[2021-04-25 05:56] LABS: BASO % 0.6 % (0.0-1.0); EOS # 0.3 10^3/uL (0.0-0.5); EOS % 4.6 % (0.0-3.0); HEMATOCRIT 41.7 % (42.0-52.0); HEMOGLOBIN 13.9 g/dl (13.5-17.5); LYMPH # 1.6 10^3/uL (1.5-5.0); LYMPH % 25.6 % (24.0-44.0); MEAN CORPUSCULAR HEMOGLOBIN 31.2 pg (27.0-33.0); MEAN CORPUSCULAR HGB CONC 33.3 g/dl (32.0-36.5); MEAN CORPUSCULAR VOLUME 93.7 fl (80.0-96.0); MONO # 0.5 10^3/uL (0.0-0.8); MONO % 7.9 % (2.0-8.0); NEUTROPHILS # 3.8 10^3/uL (1.5-8.5); PLATELET COUNT, AUTOMATED 249 10^3/uL (150-450); RED BLOOD COUNT 4.45 10^6/uL (4.30-6.10); WHITE BLOOD COUNT 6.2 10^3/uL (4.0-10.0)
[2021-04-25 06:06] LABS: BLOOD UREA NITROGEN 18 MG/DL (7-18); CARBON DIOXIDE LEVEL 28 MEQ/L (21-32); CHLORIDE LEVEL 109 MEQ/L (98-107); CREATININE FOR GFR 0.89 MG/DL (0.70-1.30); GLOMERULAR FILTRATION RATE > 60.0 (>56); GLUCOSE, FASTING 103 MG/DL (70-100); SODIUM LEVEL 141 MEQ/L (136-145)
[2021-04-25 06:07] LABS: CALCIUM LEVEL 8.4 MG/DL (8.5-10.1)
[2021-04-25] MEDS: DOCUSATE SODIUM 100MG CAPSULE PO SCH (08:12)
[2021-04-25] MEDS: MOM 30ML SUSPENSION UDC PO SCH (08:12)
[2021-04-25] MEDS: AMPHETAMINE/DEXTROAMPHETAMINE 5 MG *ER* CAPSULE (ADDERALL XR) PO SCH (08:12)
[2021-04-25] MEDS: LORATADINE 10 MG TAB PO SCH (08:12)
[2021-04-25] MEDS: PANTOPRAZOLE 40MG TAB (PROTONIX) PO SCH (08:12)
[2021-04-25] MEDS: HEPARIN SOD (PORCINE) 5000UNITS/ML 1ML VIAL/SYRINGE SC SCH (08:13)
[2021-04-25] MEDS: NICOTINE 14 MG/24 HR TRANSDERMAL TD SCH (08:13)
--- NOTE | 2021-04-25 08:19 | REP ---
INDICATION: after chest tube placed. COMPARISON: Comparison chest x-ray April 24, 2021. TECHNIQUE: Two views.. FINDINGS: Right chest tube remains in place unchanged. There is minimal platelike atelectasis at the right base. The right lung is fully inflated. No discernible pneumothorax today. There is a decreased amount of extra thoracic soft tissue emphysema along the right chest wall. Left lung remains clear. Cardiomediastinal silhouette is unremarkable. IMPRESSION: The right lung is reinflated. Right chest tube in place.. <Electronically signed by Dandre Hermosillo > 04/25/21 [id number]
[2021-04-25] MEDS ORDERED: VARE1TA PO (10:48)
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
[2021-04-25] MEDS: ADDERALL 5 MG TAB PO SCH (12:12)
--- NOTE | 2021-04-25 14:27 | IPNPDOC ---
Text Note Date of Service The patient was seen on 04/25/21. NOTE SUBJECTIVE: -Has some pain at chest tube insertion site, otherwise conversational without any other complaints OBJECTIVE VITAL SIGNS: See below GENERAL APPEARANCE: NAD, on 2L NC breathing comfortably HEENT: NCAT, EOMI, anicteric sclerae, MMM Neck: No JVD, tracheal deviation, or palpable adenopathy CARDIOVASCULAR: Sinus rhythm not tachycardic no carotid bruits LUNGS: With full breath sounds throughout, moving air well, now on room air ABDOMEN:Normoactive bowel sounds x4 quadrants, notender, no rebound guarding no hepatosplenomegaly EXTREMITIES: No cyanosis or clubbing LABORATORY DATA: Reviewed, stable IMAGING: CT chest: Limitations: Evaluation is somewhat limited by lack of IV contrast. Tubes, catheters and devices: A right chest tube has been placed since the radiograph. Lungs: There is similar bullous change in the right lower lobe with minor subpleural apical emphysematous disease. There are stable pulmonary nodules measuring 4 mm in the right lower lobe (image 202:[id number]), and 9 mm, 7 mm and 4 mm in the left lower lobe (images 202:63, 79, 69, respectively). Small scattered patchy ground-glass opacities have developed in the left more than right upper lobes. There is mild dependent atelectasis bilaterally. Pleural spaces: There is decreased, now very small right-sided pneumothorax. No left pneumothorax. Trace right pleural effusion without significant effusion on the left. Heart: Coronary artery calcifications are again present. No significant pericardial effusion. Aorta: Dilatation of the ascending aorta up to 4.2 cm in caliber is fairly stable. Atherosclerotic vascular calcifications are again present. Lymph nodes: Similar borderline enlarged pretracheal lymph node measuring 10 mm short axis. Subcentimeter short axis lymph nodes are present elsewhere in the mediastinum and bilateral sharona. Bones/joints: Degenerative changes again involve the spine. Soft tissues: There is moderate new subcutaneous edema over the right chest wall with some extension into the right neck. IMPRESSION: 1. Right chest tube placed since chest x-ray of 1 day prior, with decreased, now very small right-sided pneumothorax, with trace right pleural effusion. 2. New associated subcutaneous emphysema. 3. Emphysematous and bullous changes similar to CT of 01/29/2021. 4. Small new scattered patchy ground-glass opacities in the left more than right upper lobes, could be infectious or inflammatory. Correlate clinically and follow-up. 5. Stable appearance of pulmonary nodules measuring up to 9 mm, also stable dating back to more remote prior CT of 10/10/2020. For patients at low risk (minimal or absent history of smoking and of other known risk factors), consider continued follow-up CT Chest at 18-24 months from the initial exam. For patients at high risk (history of smoking or of other known risk factors), recommend continued follow-up CT Chest at 18-24 months from the initial exam. (Reference: [facility]) MICROBIOLOGY: Please see below. ASSESSMENT: . 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 Stanley. Chest trauma resulting in acute right pneumothorax -Thoracic surgery, Dr. Garrett Stanley placed a chest tube with reduction in the pneumothorax now very small with reexpansion of lung noted -O2 sat to be kept at greater than 90%, now on room air -As needed Sidney for pain control. - IV Toradol 30 mg every 6 hourly as needed -ALIZA protocol. Obstructive sleep apnea not tolerating CPAP -ALIZA protocol -Continuous oxygen to keep O2 sat greater than 90% at all times -Patient is to be awakened if O2 sat is less than 90% hypertension -continue home medications narcolepsy -Monitor for respiratory acidosis due to opioid use for pain control -Dr. Stanley kindly restarted his home adderall for his narcolepsy allergic rhinitis -continue home meds chronic back pain -On as needed Sidney -On IV Toradol dyslipidemia -continue home meds spiculated 9 mm left lower lobe nodule/ chronic interstitial bullous changes on CT chest 2019 -Outpatient surveillance by his emt. Per imaging, stable from prior. sacroiliac pain -On pain meds allergic rhinitis -Resumed on home meds tobacco abuse -Tobacco cessation counseling - nicotine patch and nicotine gum as needed DVT prophylaxis: Heparin SC Diet 2 g sodium diet DISPO: Likely DC home this afternoon after chest tube removal, a 6h observation and XR at 4PM. VS,Fishbone, I+O VS, Fishbone, I+O Laboratory Tests 04/25/21 05:30 Vital Signs Date Time Temp Pulse Resp B/P (MAP) Pulse Ox O2 Delivery O2 Flow Rate FiO2 04/25/21 04:00 95 Room Air 04/25/21 04:00 97.7 75 17 138/90 (106) 04/24/21 22:00 1.0 I&O- Last 24 Hours up to 6 AM 04/25/21 06:00 Intake Total 1500 ml Output Total 635 ml Balance 865 ml NORMA WATERS MD Apr 25, 2021 08:03
--- NOTE | 2021-04-25 16:08 | REP ---
INDICATION: pneumothx COMPARISON: 04/25/2021 7:32 a.m. TECHNIQUE: PA/Lateral FINDINGS: No pneumothorax is seen. No infiltrate is seen in either lung. The heart and mediastinum are within normal limits. A small amount of air is seen in the right chest wall. Previously noted right chest tube has been removed. IMPRESSION: No pneumothorax or infiltrate. <Electronically signed by Beyn Enrique > 04/25/21 [id number]
== END 2021-04-25 17:12 | disposition home or self-care (01) | DRG 200 ==
LOC: M ED 19:49 → M ED INP 20:46 → ENRESERV 21:05 → M PCU 21:15
PROVIDERS: ADMIT General Practice; ATTEND Thoracic Surgery (Cardiothoracic Vascular Surgery)
PROC: 0W9900Z Drainage of Right Pleural Cavity with Drainage Device, Open Approach (ICD-10-PCS; principal; 2021-04-23)
DX: S27.0XXA Traumatic pneumothorax, initial encounter (principal); S27.321A Contusion of lung, unilateral, initial encounter; G47.33 Obstructive sleep apnea (adult) (pediatric); I10 Essential (primary) hypertension; G47.419 Narcolepsy without cataplexy; J30.9 Allergic rhinitis, unspecified; M46.1 Sacroiliitis, not elsewhere classified; E78.5 Hyperlipidemia, unspecified; T21.21XA Burn of second degree of chest wall, initial encounter; J43.9 Emphysema, unspecified; R91.8 Other nonspecific abnormal finding of lung field; F17.210 Nicotine dependence, cigarettes, uncomplicated; W40.1XXA Explosion of explosive gases, initial encounter; Y92.9 Unspecified place or not applicable; Y99.8 Other external cause status; Y93.H9 Activity, other involving exterior property and land maintenance, building and construction; Z20.822 Contact with and (suspected) exposure to COVID-19; Z79.899 Other long term (current) drug therapy

== ENCOUNTER → 2021-04-30 | Outpatient (CLI) | payer OTHER ==
[~2021-04-30] MED LIST changes: +ADDE20CA3 PO; +ADDE20TA PO; +CLAR10TA7 PO; +IBUP1TAB7 PO; +OMEP1CAP73 PO; +SILV1CRE60 TOP; +VARE1TA PO
--- NOTE | 2021-04-30 15:29 | REP ---
INDICATION: S27.0XXD TRAUMATIC PNEUMOTHORAX, SUBSEQUENT ENCOUNTER. COMPARISON: None. FINDINGS: The superior mediastinal structures are midline. The cardiac silhouette is unremarkable in size, shape, and position. The diaphragmatic surfaces of the lungs are regular, and the costophrenic angles are clear. The pulmonary loomis are clear. The imaged osseous structures are intact. IMPRESSION: There is no acute cardiopulmonary disease. <Electronically signed by Prakash Gunter > 04/30/21 [id number]
== END ==
LOC: M PLAIMG 14:15
PROVIDERS: ATTEND Thoracic Surgery (Cardiothoracic Vascular Surgery)
DX: S27.0XXD Traumatic pneumothorax, subsequent encounter (principal); X58.XXXD Exposure to other specified factors, subsequent encounter; Y92.89 Other specified places as the place of occurrence of the external cause

== ENCOUNTER → 2021-05-13 | Outpatient (CLI) | payer OTHER ==
--- NOTE | 2021-05-13 09:33 | REP ---
INDICATION: CHEST PAIN. COMPARISON: Multiple the latest 04/30/2021 TECHNIQUE: PA and lateral FINDINGS: The superior mediastinal structures are midline. The cardiac silhouette is unremarkable in size, shape, and position. The diaphragmatic surfaces of the lungs are regular, and the costophrenic angles are clear. The pulmonary loomis are clear. The imaged osseous structures are intact. IMPRESSION: There is no acute cardiopulmonary disease. There is no significant change compared to the prior exam. <Electronically signed by Prakash Gunter > 05/13/21 [id number]
== END ==
LOC: M WUC 08:32
PROVIDERS: ATTEND Physician Assistant
DX: R07.9 Chest pain, unspecified (principal)

== ENCOUNTER → 2021-07-08 | Outpatient (CLI) | payer OTHER ==
--- NOTE | 2021-07-08 11:35 | REP ---
INDICATION: ABN FINDING OF LUNG FIELD COMPARISON: Multiple the latest 04/24/2021 also without contrast TECHNIQUE: Standard helical technique without contrast FINDINGS: The mediastinum and pulmonary sharona are unchanged. There are no pleural or pericardial effusions. The imaged upper abdomen and imaged osseous structures are stable. All subcutaneous emphysema seen previously on the right has abated. Evaluation of the lung loomis shows removal of the previously present right-sided thoracotomy tube. There is a stable right lower lobe cystic airspace. The tiny right-sided pneumothorax has resolved. Scattered ground-glass opacities seen on the prior exam have resolved. No new abnormal nodules, masses, or opacities have developed. IMPRESSION: 1. Removal of right-sided thoracotomy tube. 2. Resolved subcutaneous emphysema and tiny right pneumothorax. 3. Resolved scattered ground-glass opacities. 4. Multiple bilateral stable pulmonary nodules ranging from 4 mm in size to 9 mm in size and consistent with category [address] screening is recommended according to the revised Fleischner society criteria. 5. Other findings as described above. <Electronically signed by Prakash Gunter > 07/08/21 [id number]
== END ==
LOC: M RAD 10:38
PROVIDERS: ATTEND Nurse Practitioner Family
DX: R91.8 Other nonspecific abnormal finding of lung field (principal)

== ENCOUNTER → 2021-07-23 | Outpatient (CLI) | payer OTHER | LOC: M PLALAB 13:51 | PROVIDERS: ATTEND Urology | DX: R97.20 Elevated prostate specific antigen [PSA] (principal) ==

== ENCOUNTER → 2022-01-20 | Outpatient (CLI) | payer OTHER | LOC: M PLALAB 08:26 | PROVIDERS: ATTEND Nurse Practitioner Women's Health | DX: R97.20 Elevated prostate specific antigen [PSA] (principal) ==

== ENCOUNTER → 2022-01-21 | Outpatient (CLI) | payer OTHER ==
[2022-01-21 11:17] LABS: ALBUMIN 3.8 GM/DL (3.2-5.2); ALT/SGPT 36 U/L (12-78); BILIRUBIN,TOTAL 0.5 MG/DL (0.2-1.0); BLOOD UREA NITROGEN 17 MG/DL (7-18); CALCIUM LEVEL 8.8 MG/DL (8.5-10.1); CARBON DIOXIDE LEVEL 29 MEQ/L (21-32); CHLORIDE LEVEL 107 MEQ/L (98-107); CHOLESTEROL LEVEL 172 MG/DL (<200); CHOLESTEROL RISK RATIO 4.095 (<5); CREATININE FOR GFR 0.96 MG/DL (0.70-1.30); GLOMERULAR FILTRATION RATE > 60.0 (>56); GLUCOSE, FASTING 92 MG/DL (70-100); HDL CHOLESTEROL 42 MG/DL (>40); LDL CHOLESTEROL 106 MG/DL (<100); NON-HDL-C 130 MG/DL; POTASSIUM SERUM 4.5 MEQ/L (3.5-5.1); SODIUM LEVEL 140 MEQ/L (136-145); TOTAL PROTEIN 6.8 GM/DL (6.4-8.2); TRIGLYCERIDES LEVEL 122 MG/DL (<150)
[2022-01-21 11:21] LABS: TOTAL 25(OH) VITAMIN D 18.9 NG/ML (30.0-100.0)
== END ==
LOC: M PLALAB 08:04
PROVIDERS: ATTEND Nurse Practitioner Adult Health
DX: I11.9 Hypertensive heart disease without heart failure (principal); E78.5 Hyperlipidemia, unspecified; E55.9 Vitamin D deficiency, unspecified

== ENCOUNTER → 2022-02-02 | Outpatient (CLI) | payer OTHER | LOC: M RAD 15:45 | PROVIDERS: ATTEND Internal Medicine Pulmonary Disease | DX: R91.8 Other nonspecific abnormal finding of lung field (principal) ==

== ENCOUNTER → 2022-08-13 | Outpatient (CLI) | payer OTHER | LOC: M RAD 16:20 | PROVIDERS: ATTEND Internal Medicine Pulmonary Disease | DX: R91.8 Other nonspecific abnormal finding of lung field (principal) ==

== ENCOUNTER → 2023-03-11 | Outpatient (CLI) | payer BC ==
[~2023-03-11] MED LIST changes: +CIPR-249 PO; +NOXI1TAB PO; +REGL5TAB2 PO; +TADA10TA
[2023-03-11 17:51] LABS: BASO # 0.1 10^3/uL (0.0-0.2); BASO % 0.9 % (0.0-1.0); EOS # 0.1 10^3/uL (0.0-0.5); EOS % 2.2 % (0.0-3.0); HEMATOCRIT 42.2 % (42.0-52.0); HEMOGLOBIN 14.2 g/dl (13.5-17.5); LYMPH # 1.3 10^3/uL (1.5-5.0); LYMPH % 23.8 % (24.0-44.0); MEAN CORPUSCULAR HEMOGLOBIN 30.6 pg (27.0-33.0); MEAN CORPUSCULAR HGB CONC 33.6 g/dl (32.0-36.5); MEAN CORPUSCULAR VOLUME 90.9 fl (80.0-96.0); MONO # 1.1 10^3/uL (0.0-0.8); MONO % 20.1 % (2.0-8.0); NEUTROPHILS # 2.9 10^3/uL (1.5-8.5); NEUTROPHILS % 52.6 % (36.0-66.0); PLATELET COUNT, AUTOMATED 266 10^3/uL (150-450); RED BLOOD COUNT 4.64 10^6/uL (4.30-6.10); WHITE BLOOD COUNT 5.4 10^3/uL (4.0-10.0)
[2023-03-11 18:00] LABS: ERYTHROCYTE SEDIMENTATION RATE 21 mm/hr (0-20)
[2023-03-11 18:11] LABS: ALBUMIN 3.8 G/DL (3.2-5.2); ALKALINE PHOSPHATASE 82 U/L (46-116); ALT/SGPT 25 U/L (7.0-40); AST/SGOT 18 U/L (<34); BILIRUBIN,TOTAL 0.7 MG/DL (0.3-1.2); BLOOD UREA NITROGEN 12 MG/DL (9-23); CALCIUM LEVEL 8.8 MG/DL (8.5-10.1); CARBON DIOXIDE LEVEL 29 MMOL/L (20-31); CHLORIDE LEVEL 104 MMOL/L (98-107); CREATININE FOR GFR 1.02 MG/DL (0.70-1.30); GLOMERULAR FILTRATION RATE > 60.0 (>56); GLUCOSE, FASTING 88 MG/DL (60-100); SODIUM LEVEL 141 MMOL/L (136-145); TOTAL PROTEIN 6.9 G/DL (5.7-8.2)
== END ==
LOC: M PLALAB 16:12
PROVIDERS: ATTEND Physician Assistant
DX: R50.9 Fever, unspecified (principal)

== ENCOUNTER 2023-03-15 16:08 | Emergency (ER) | payer BC ==
[~2023-03-15] VITALS: Ht 182.9 cm; Wt 88.9 kg
[~2023-03-15 16:08] MED LIST changes: -CIPR-249 PO; -NOXI1TAB PO; -REGL5TAB2 PO; -TADA10TA
[2023-03-15] MEDS ORDERED: TADA10TA (16:43)
[2023-03-15] MEDS ORDERED: NOXI1TAB PO (16:43)
[2023-03-15 19:17] LABS: BASO # 0.1 10^3/uL (0.0-0.2); BASO % 0.7 % (0.0-1.0); EOS # 0.1 10^3/uL (0.0-0.5); EOS % 1.6 % (0.0-3.0); HEMATOCRIT 38.4 % (42.0-52.0); HEMOGLOBIN 13.2 g/dl (13.5-17.5); LYMPH # 1.2 10^3/uL (1.5-5.0); LYMPH % 16.5 % (24.0-44.0); MEAN CORPUSCULAR HEMOGLOBIN 30.2 pg (27.0-33.0); MEAN CORPUSCULAR HGB CONC 34.4 g/dl (32.0-36.5); MEAN CORPUSCULAR VOLUME 87.9 fl (80.0-96.0); MONO # 1.3 10^3/uL (0.0-0.8); MONO % 18.3 % (2.0-8.0); NEUTROPHILS # 4.6 10^3/uL (1.5-8.5); NEUTROPHILS % 62.4 % (36.0-66.0); PLATELET COUNT, AUTOMATED 316 10^3/uL (150-450); RED BLOOD COUNT 4.37 10^6/uL (4.30-6.10); WHITE BLOOD COUNT 7.3 10^3/uL (4.0-10.0)
[2023-03-15 19:40] LABS: LIPASE 112 U/L (12-53)
[2023-03-15 19:43] LABS: ALBUMIN 3.3 G/DL (3.2-5.2); ALKALINE PHOSPHATASE 81 U/L (46-116); ALT/SGPT 23 U/L (7.0-40); AST/SGOT 15 U/L (<34); BILIRUBIN,DIRECT 0.3 MG/DL (<0.4); BILIRUBIN,TOTAL 0.7 MG/DL (0.3-1.2); BLOOD UREA NITROGEN 20 MG/DL (9-23); CALCIUM LEVEL 8.6 MG/DL (8.5-10.1); CARBON DIOXIDE LEVEL 30 MMOL/L (20-31); CHLORIDE LEVEL 101 MMOL/L (98-107); CREATININE FOR GFR 1.08 MG/DL (0.70-1.30); GLOMERULAR FILTRATION RATE > 60.0 (>56); GLUCOSE, FASTING 103 MG/DL (60-100); SODIUM LEVEL 139 MMOL/L (136-145); TOTAL PROTEIN 6.8 G/DL (5.7-8.2)
[2023-03-16] MEDS ORDERED: NS 1,000 ML IV ONE ×2 (00:45→06:30)
[2023-03-16] MEDS ORDERED: POTASSIUM CHLORIDE 10MEQ SR TABLET As Ordered ONE (01:19)
[2023-03-16] MEDS ORDERED: ISOVUE-370 76% 100ML VIAL As Ordered ONE ×2 (01:28→08:29)
[2023-03-16 03:27] LABS: RSV AMPLIFICATION NEGATIVE (NEGATIVE)
[2023-03-16 04:23] LABS: CK-MB VALUE MASS 1.2 NG/ML (<3.6); MAGNESIUM LEVEL 1.7 MG/DL (1.8-2.4); MB/CK RELATIVE INDEX 1.37 (< OR =4)
[2023-03-16] MEDS ORDERED: MAG SULF 1GM/100ML (MAG RUN) 1 GM in IV 1 EA IV ONE (07:00)
[2023-03-16] MEDS ORDERED: CIPROFLOXACIN 500MG TABLET PO ONE (08:40)
[2023-03-16] MEDS ORDERED: REGL5TAB2 PO (08:40)
[2023-03-16] MEDS ORDERED: CIPR-249 PO (08:40)
[2023-03-16 08:50] VITALS: BP 127/75; TEMP 98.7; O2SAT 96
== END 2023-03-16 08:58 | disposition home or self-care (01) ==
LOC: M ED 16:08
DX: A02.0 Salmonella enteritis (principal); I10 Essential (primary) hypertension; K44.9 Diaphragmatic hernia without obstruction or gangrene; N40.0 Benign prostatic hyperplasia without lower urinary tract symptoms; F90.9 Attention-deficit hyperactivity disorder, unspecified type; J44.9 Chronic obstructive pulmonary disease, unspecified; G47.33 Obstructive sleep apnea (adult) (pediatric); M54.9 Dorsalgia, unspecified; F17.200 Nicotine dependence, unspecified, uncomplicated; Z79.899 Other long term (current) drug therapy
CPT/HCPCS: 74177; 80048; 80076; 82550; 82553; 83690; 83735; 84484; 85025; 87507; 87631; 93005; 96365; 99284; J3475; Q9967

== ENCOUNTER → 2023-07-19 | Outpatient (CLI) | payer BC ==
[~2023-07-19] MED LIST changes: +CIPR-249 PO; +NOXI1TAB PO; +REGL5TAB2 PO; +TADA10TA
== END ==
LOC: M PLALAB 07:50
PROVIDERS: ATTEND Urology
DX: N40.0 Benign prostatic hyperplasia without lower urinary tract symptoms (principal)

== ENCOUNTER → 2023-07-19 | Outpatient (CLI) | payer BC ==
[2023-07-19 10:47] LABS: ALBUMIN 3.7 G/DL (3.2-5.2); ALKALINE PHOSPHATASE 77 U/L (46-116); ALT/SGPT 34 U/L (7.0-40); AST/SGOT 27 U/L (<34); BILIRUBIN,TOTAL 0.6 MG/DL (0.3-1.2); BLOOD UREA NITROGEN 16 MG/DL (9-23); CALCIUM LEVEL 8.7 MG/DL (8.5-10.1); CARBON DIOXIDE LEVEL 30 MMOL/L (20-31); CHLORIDE LEVEL 107 MMOL/L (98-107); CHOLESTEROL LEVEL 153 MG/DL (<200); GLOMERULAR FILTRATION RATE > 60.0 (>56); GLUCOSE, FASTING 104 MG/DL (60-100); HDL CHOLESTEROL 43.6 MG/DL (>40); LDL CHOLESTEROL 92.2 MG/DL (<100); NON-HDL-C 109.4 MG/DL; SODIUM LEVEL 143 MMOL/L (136-145); TOTAL PROTEIN 6.6 G/DL (5.7-8.2); TRIGLYCERIDES LEVEL 86 MG/DL (<150)
[2023-07-19 11:09] LABS: HEMOGLOBIN A1c 5.1 % (4.0-6.0)
== END ==
LOC: M PLALAB 07:49
PROVIDERS: ATTEND Nurse Practitioner Adult Health
DX: E78.5 Hyperlipidemia, unspecified (principal); Z83.3 Family history of diabetes mellitus

== ENCOUNTER → 2023-07-21 | Outpatient (REF) | payer BC | LOC: M LABSMT 08:55 | PROVIDERS: ATTEND Urology | DX: Z53.9 Procedure and treatment not carried out, unspecified reason (principal) ==

== ENCOUNTER → 2023-09-21 | Outpatient (CLI) | payer BC | LOC: M RAD 07:26 | PROVIDERS: ATTEND Internal Medicine Pulmonary Disease | DX: R91.8 Other nonspecific abnormal finding of lung field (principal) ==

== ENCOUNTER → 2024-01-07 | Outpatient (CLI) | payer BC | LOC: M WUC 09:05 | PROVIDERS: ATTEND Nurse Practitioner Family | DX: M79.672 Pain in left foot (principal) ==

== ENCOUNTER → 2024-07-31 | Outpatient (CLI) | payer BC, SELFPAY ==
[2024-07-31 15:23] LABS: HEMOGLOBIN A1c 5.4 % (4.0-6.0)
[2024-07-31 15:45] LABS: ALBUMIN 3.7 G/DL (3.2-5.2); ALKALINE PHOSPHATASE 87 U/L (40-129); ALT/SGPT 31 U/L (7.0-40); AST/SGOT 19 U/L (<34); BILIRUBIN,TOTAL 0.6 MG/DL (0.3-1.2); BLOOD UREA NITROGEN 18 MG/DL (9-23); CALCIUM LEVEL 9.5 MG/DL (8.5-10.1); CARBON DIOXIDE LEVEL 28 MMOL/L (20-31); CHLORIDE LEVEL 106 MMOL/L (98-107); CHOLESTEROL LEVEL 186 MG/DL (<200); CHOLESTEROL RISK RATIO 3.97 (<5); CREATININE FOR GFR 0.92 MG/DL (0.70-1.30); GLOMERULAR FILTRATION RATE > 60.0 (>56); GLUCOSE, FASTING 108 MG/DL (60-100); HDL CHOLESTEROL 46.8 MG/DL (>40); LDL CHOLESTEROL 112.8 MG/DL (<100); NON-HDL-C 139.2 MG/DL; POTASSIUM SERUM 3.8 MMOL/L (3.5-5.1); SODIUM LEVEL 139 MMOL/L (136-145); TOTAL PROTEIN 6.8 G/DL (5.7-8.2); TRIGLYCERIDES LEVEL 132 MG/DL (<150)
[2024-07-31 15:46] LABS: FREE T4 1.07 NG/DL (0.89-1.76)
[2024-07-31 15:47] LABS: TOTAL 25(OH) VITAMIN D 38.3 NG/ML (20.0-100.0)
== END ==
LOC: M PLALAB 12:07
PROVIDERS: ATTEND Nurse Practitioner Adult Health
DX: Z00.00 Encounter for general adult medical examination without abnormal findings (principal); E78.5 Hyperlipidemia, unspecified; E55.9 Vitamin D deficiency, unspecified; Z83.3 Family history of diabetes mellitus; Z13.29 Encounter for screening for other suspected endocrine disorder

== ENCOUNTER → 2024-07-31 | Outpatient (CLI) | payer BC, SELFPAY | LOC: M PLALAB 12:09 | PROVIDERS: ATTEND Urology | DX: N40.0 Benign prostatic hyperplasia without lower urinary tract symptoms (principal) | CPT/HCPCS: 36415; G0103 ==

== ENCOUNTER → 2024-08-18 | Outpatient (REF) | payer BC | LOC: M SMT 12:54 | PROVIDERS: ATTEND Urology | DX: R97.20 Elevated prostate specific antigen [PSA] (principal) ==

== ENCOUNTER → 2024-10-30 | Outpatient (CLI) | payer BC ==
[2024-10-30 17:53] LABS: HEMOGLOBIN 14.1 g/dl (13.5-17.5); MEAN CORPUSCULAR HEMOGLOBIN 30.3 pg (27.0-33.0); MEAN CORPUSCULAR HGB CONC 33.6 g/dl (32.0-36.5); MEAN CORPUSCULAR VOLUME 90.3 fl (80.0-96.0); PLATELET COUNT, AUTOMATED 236 10^3/uL (150-450); RED BLOOD COUNT 4.65 10^6/uL (4.30-6.10); WHITE BLOOD COUNT 6.5 10^3/uL (4.0-10.0)
[2024-10-30 18:23] LABS: ALBUMIN 4.1 G/DL (3.2-5.2); ALKALINE PHOSPHATASE 79 U/L (40-129); ALT/SGPT 31 U/L (7.0-40); AST/SGOT 21 U/L (<34); BILIRUBIN,TOTAL 0.5 MG/DL (0.3-1.2); BLOOD UREA NITROGEN 15 MG/DL (9-23); CALCIUM LEVEL 9.1 MG/DL (8.5-10.1); CARBON DIOXIDE LEVEL 28 MMOL/L (20-31); CHLORIDE LEVEL 106 MMOL/L (98-107); CREATININE FOR GFR 0.96 MG/DL (0.70-1.30); GLOMERULAR FILTRATION RATE > 60.0 (>56); GLUCOSE, FASTING 94 MG/DL (60-100); MAGNESIUM LEVEL 1.9 MG/DL (1.8-2.4); POTASSIUM SERUM 4.3 MMOL/L (3.5-5.1); SODIUM LEVEL 142 MMOL/L (136-145); TOTAL PROTEIN 7.4 G/DL (5.7-8.2)
== END ==
LOC: M PLALAB 14:50
PROVIDERS: ATTEND Nurse Practitioner Adult Health
DX: J43.8 Other emphysema (principal); I49.9 Cardiac arrhythmia, unspecified; I11.9 Hypertensive heart disease without heart failure

== ENCOUNTER → 2024-11-02 | Outpatient (CLI) | payer BC | LOC: M CARPUL 16:09 | PROVIDERS: ATTEND Nurse Practitioner Adult Health | DX: I49.9 Cardiac arrhythmia, unspecified (principal); I50.30 Unspecified diastolic (congestive) heart failure; I51.7 Cardiomegaly; I34.0 Nonrheumatic mitral (valve) insufficiency; I36.1 Nonrheumatic tricuspid (valve) insufficiency ==

== ENCOUNTER → 2024-12-05 | Outpatient (CLI) | payer BC | LOC: M RAD 14:38 | PROVIDERS: ATTEND Internal Medicine Pulmonary Disease | DX: Z87.891 Personal history of nicotine dependence (principal) ==

== ENCOUNTER → 2025-01-09 | Outpatient (CLI) | payer BC ==
[~2025-01-09] MED LIST changes: +METHACHOLINE KIT (6 VIAL.NEB PREMIX) INH ONE
== END ==
LOC: M CARPUL 12:37
PROVIDERS: ATTEND Internal Medicine Pulmonary Disease
DX: R05.9 Cough, unspecified (principal)

== ENCOUNTER → 2025-04-26 | Outpatient (CLI) | payer BC ==
[~2025-04-26] MED LIST changes: -METHACHOLINE KIT (6 VIAL.NEB PREMIX) INH ONE
== END ==
LOC: M PLALAB 13:52
PROVIDERS: ATTEND Urology
DX: R97.20 Elevated prostate specific antigen [PSA] (principal)

== ENCOUNTER → 2025-05-30 | Outpatient (CLI) | payer BC ==
[~2025-05-30] MED LIST changes: +PROHANCE 279.3MG/ML 15ML VIAL As Ordered ONE; +PROHANCE 279.3MG/ML 5ML VIAL As Ordered ONE
== END ==
LOC: M RAD 08:58
PROVIDERS: ATTEND Urology
DX: R97.20 Elevated prostate specific antigen [PSA] (principal)

== ENCOUNTER → 2025-06-22 | Outpatient (REF) | payer BC ==
[~2025-06-22] MED LIST changes: -PROHANCE 279.3MG/ML 15ML VIAL As Ordered ONE; -PROHANCE 279.3MG/ML 5ML VIAL As Ordered ONE
[2025-06-22 16:40] LABS: APPEARANCE, URINE TURBID (CLEAR); BACTERIA, URINE AUTO NEGATIVE (NEGATIVE); BILIRUBIN, URINE AUTO NEGATIVE (NEGATIVE); BLOOD, URINE BLOOD NEGATIVE (NEGATIVE); GLUCOSE, URINE (UA) AUTO NEGATIVE (NEGATIVE); KETONE, URINE AUTO NEGATIVE (NEGATIVE); LEUKOCYTE ESTERASE, URINE AUTO NEGATIVE (NEGATIVE); MUCUS, URINE SMALL (NEGATIVE); NITRITE, URINE AUTO NEGATIVE (NEGATIVE); PROTEIN, URINE AUTO NEGATIVE (NEGATIVE); RBC, URINE AUTO 0 /HPF (0-3); SPECIFIC GRAVITY URINE AUTO 1.026 (1.002-1.035); SQUAMOUS EPITHELIAL CELL UR AU 0 /HPF (0-6); UROBILINOGEN, URINE AUTO 0.2 mg/dL (0.0-2.0); WBC, URINE AUTO 0 /HPF (0-3)
== END ==
LOC: M SMT 13:10
PROVIDERS: ATTEND Urology
DX: R93.89 Abnormal findings on diagnostic imaging of other specified body structures (principal)

== ENCOUNTER → 2025-08-17 | Outpatient (CLI) | payer BC | LOC: M PLALAB 11:55 | PROVIDERS: ATTEND Urology | DX: R97.20 Elevated prostate specific antigen [PSA] (principal) ==

== ENCOUNTER → 2025-08-21 | Outpatient (REF) | payer BC | LOC: M SMT 12:32 | PROVIDERS: ATTEND Urology | DX: R97.20 Elevated prostate specific antigen [PSA] (principal); C61 Malignant neoplasm of prostate ==